=== PATIENT | female | born 1960 | race African-American/Black ===

== ENCOUNTER 2017-03-24 12:11 | Emergency (ER) | payer MEDICAID ==
[~2017-03-24] VITALS: Ht 154.9 cm; Wt 92.0 kg
[~2017-03-24 12:11] MED LIST: LISI2.5T47
[2017-03-24 12:52] VITALS: BP 158/89
== END 2017-03-24 17:02 | disposition left against medical advice (07) ==
LOC: ER 16:56
DX: R05 Cough (principal); Z53.21 Procedure and treatment not carried out due to patient leaving prior to being seen by health care provider

== ENCOUNTER 2019-03-23 11:01 | Emergency (ER) | payer MEDICAID ==
[~2019-03-23] VITALS: Ht 157.5 cm; Wt 96.0 kg
[2019-03-23] MEDS ORDERED: CLONIDINE 0.2MG TABLET PO ONE (12:00)
[2019-03-23 12:02] LABS: CLARITY URINE CLOUDY (CLEAR); COLOR URINE YELLOW (YELLOW); KETONES URINE NEGATIVE (NEGATIVE); LEUKOCYTE ESTERASE URINE 2+ (NEGATIVE); NITRITE URINE NEGATIVE (NEGATIVE); OCCULT BLOOD URINE NEGATIVE (NEGATIVE); PH URINE 6.5 (4.5-8.0); PROTEIN URINE TRACE (NEGATIVE)
[2019-03-23 12:31] LABS: CHLORIDE 105 mEq/L (98-107)
[2019-03-23 12:34] LABS: BASOPHILS % 0.3 % (0.0-2.0); EOSINOPHILS % 2.5 % (0.0-5.0); HEMATOCRIT. 33.8 % (36.0-48.0); HEMOGLOBIN. 10.9 g/dL (12.0-16.0); LYMPHOCYTES % 33.3 % (20.0-50.0); MEAN CORPUSCULAR HEMOGLOBIN 26.9 pg (28.0-32.0); MEAN PLATELET VOLUME 8.4 fl (7.4-10.4); MONOCYTES % 6.6 % (2.0-8.0); NEUTROPHILS % 57.3 % (40.0-76.0); PLATELET 208 x1000/uL (130-400); RED BLOOD CELL COUNT 4.07 mill/uL (4.2-5.4); RED CELL DISTRIBUTION WIDTH 17.5 % (11.6-14.6)
[2019-03-23 12:54] VITALS: BP 220/123
== END 2019-03-23 14:12 | disposition left against medical advice (07) ==
LOC: ER 11:29
DX: N39.0 Urinary tract infection, site not specified (principal); I10 Essential (primary) hypertension; J45.909 Unspecified asthma, uncomplicated; E78.00 Pure hypercholesterolemia, unspecified; Z88.5 Allergy status to narcotic agent; Z88.8 Allergy status to other drugs, medicaments and biological substances
CPT/HCPCS: 36415; 99283